=== PATIENT | male | born 2000 | race Two or more races ===

== ENCOUNTER 2022-08-30 07:18 | Day surgery (SDC) | payer OTHER ==
[2022-08-30] VITALS (8 sets, daily range): BP systolic 120–134; BP diastolic 58–81
[~2022-08-30] VITALS: Ht 175.3 cm; Wt 88.9 kg
[~2022-08-30 07:18] MED LIST: NO HOME MEDS; famotidine 20mg tablet PO ONE; ringers solution, lacted 1,000 ML IV SCH
[2022-08-30] MEDS ORDERED: CEFAZOLIN 2 GM injection IM ONE (09:15)
[2022-08-30 09:28] LABS: BASOPHILS % (AUTO) 0.9 % (0-1); EOSINOPHILS % (AUTO) 0.7 % (0-6); HEMATOCRIT 47.1 % (42.0-52.0); HEMOGLOBIN 15.6 g/dl (14.0-17.9); LYMPHOCYTES # (AUTO) 1.8 X10'3 (1.1-4.8); LYMPHOCYTES % (AUTO) 38.1 % (21-51); MEAN CORPUSCULAR HEMOGLOBIN 28.9 PG (27.0-31.0); MEAN CORPUSCULAR HGB CONC 33.1 g/dL (33.0-36.5); MEAN CORPUSCULAR VOLUME 87.3 FL (78-98); MEAN PLATELET VOLUME 7.9 FL (7.4-10.4); MONOCYTES # (AUTO) 0.5 X10'3 (0-0.9); MONOCYTES % (AUTO) 9.9 % (2-12); NEUTROPHILS # (AUTO) 2.4 X10'3 (1.8-7.7); NEUTROPHILS % (AUTO) 50.4 % (42-75); PLATELET COUNT 184 X10'3 (140-440); RED CELL DISTRIBUTION WIDTH 13.6 % (11.5-14.5); WHITE BLOOD COUNT 4.9 X10'3 (4.5-11.0)
[2022-08-30] MEDS ORDERED: ondansetron/PF 4mg/2ml inj IV PRN (09:30)
[2022-08-30] MEDS ORDERED: morphine 2 MG/ML inj. syringe IV PRN (09:30)
[2022-08-30] MEDS ORDERED: morphine 4 MG/ML inj SYRINge IV PRN (09:30)
[2022-08-30] MEDS ORDERED: proCHLORperazine 10 MG/2 ml inj IV PRN (09:30)
[2022-08-30] MEDS ORDERED: meperidine/PF 25mg/ml syringe IV PRN ×3 (09:30)
[2022-08-30] MEDS ORDERED: ringers solution, lacted 1,000 ML IV SCH (09:30)
[2022-08-30 09:31] LABS: CLARITY,URINE CLEAR (Clear); COLOR,URINE YELLOW (Yellow); GLUCOSE, URINE NEGATIVE (Neg); KETONES,URINE NEGATIVE (Neg); LEUKOCYTE ESTERASE ,URINE NEGATIVE (Neg); NITRITES, URINE NEGATIVE (Neg); OCCULT BLOOD,URINE TRACE-INTACT (Neg); PROTEIN,URINE NEGATIVE (Neg); UROBILINOGEN,URINE 0.2 E.U/dL (0.2-1.0)
[2022-08-30 09:33] LABS: UA COLLECTION TYPE CLN CATCH MIDSTREAM
[2022-08-30] MEDS ORDERED: cefazolin 2gm/D5W 100mL 100 ML IV ONE (09:33)
[2022-08-30] MEDS ORDERED: BUPIVAcaine/PF 2.5 mg/ml (0.25%) 30ml vial ONE (09:41)
[2022-08-30] MEDS ORDERED: povidone-iodine 10% ointment 1 APPLIC APPLIC TP ONE (09:41)
[2022-08-30 09:44] LABS: BACTERIA,URINE NONE SEEN /HPF (Neg); MUCUS STRANDS NONE SEEN /LPF (Neg); RBC,URINE 0-2 /HPF (0-2); SQUAMOUS EPITHELIAL CELL,UR NONE SEEN /LPF (FEW); WBC,URINE NONE SEEN /HPF (0-4)
[2022-08-30] MEDS ORDERED: cloNIDine hcl/PF 100mcg/ml inj ONE (10:04)
[2022-08-30] MEDS ORDERED: fentaNYL/PF 50MCG/1 ML 2ML syringe ONE (10:08)
[2022-08-30] MEDS ORDERED: MIDAZolam 1 MG/ML 5ML VIAL ONE (10:08)
[2022-08-30] MEDS ORDERED: rocuronium 10mg/ml inj IV ONE (10:15)
[2022-08-30] MEDS ORDERED: sevoflurane 250ml liquid IH ONE (10:15)
[2022-08-30 11:03] LABS: BLOOD UREA NITROGEN 16 MG/DL (7-18); BUN/CREATININE RATIO 22.9 (10.0-20.0); CALCIUM 9.1 MG/DL (8.5-10.1); CHLORIDE 104 MMOL/L (99-107); GLUCOSE 100 MG/DL (70-104); SODIUM 141 MMOL/L (135-145); eGFR > 90 ML/MIN
[2022-08-30 11:25] LABS: ALANINE AMINOTRANSFERASE 12 U/L (12-78); ALBUMIN 4.1 G/DL (3.4-5.0); ALBUMIN/GLOBULIN RATIO 1.2 (1.1-1.5); ALKALINE PHOSPHATASE 77 IU/L (20-180); ANION GAP 7 (8-16); ASPARTATE AMINO TRANSFERASE 12 U/L (10-37); BILIRUBIN,TOTAL 0.8 MG/DL (0.1-1.0); TOTAL PROTEIN 7.4 G/DL (6.4-8.2)
[2022-08-30] MEDS ORDERED: ePHEDrine 50MG/ML INJ. ONE (11:28)
[2022-08-30] MEDS ORDERED: neostigmine methylsulfate 1 MG/ML 10ml vial ONE (11:28)
[2022-08-30] MEDS ORDERED: propofol inj 20 ML IV ONE (11:28)
[2022-08-30] MEDS ORDERED: glycopyrrolate 0.2mg/ml inj ONE (11:28)
[2022-08-30] MEDS ORDERED: dexamethasone sod phosphate 4mg/ml inj. ONE (11:28)
[2022-08-30] MEDS ORDERED: ondansetron/PF 4mg/2ml inj ONE (11:28)
[2022-08-30] MEDS ORDERED: phenylephrine 10mg/ml inj. -priapism dosing ONE (11:28)
[2022-08-30] MEDS ORDERED: ROPIVAcaine 0.5% (5mg/ml) 30ml vial ONE (11:29)
[2022-08-30] MEDS ORDERED: meperidine/PF 25mg/ml syringe ONE (11:35)
--- NOTE | 2022-08-30 11:39 | NUR ---
Received from OR via [facility], accompanied by Anesthesiologist and report given by NORRIS Anesthesiologist. PATIENT WAKING UP, NO S/S OF PAIN, V/S WNL, 20G TO RIGHT FOREARM, LEFT ANKLE MACO WRAP DRESSING C/D/I. ELEVATE AND ICE PACK LLE. Addendum: 08/30/22 at 1152 by Kalin Tidwell RN Amended: Links added.
--- NOTE | 2022-08-30 12:39 | NUR ---
ALL DISCHARGE CRITERIA HAS BEEN MET. VSS, PAIN AT A TOLERABLE LEVEL, ABLE TO SAFELY AMBULATE AND TRANSFER SELF. IV TAKEN OUT WITHOUT ANY COMPLICATIONS. ALL DISCHARGE INSTRUCTIONS COVERED WITH PATIENT AND ALL QUESTIONS ANSWERED. PATIENT TAKEN OUT VIA WHEELCHAIR WITH ALL BELONGINGS TO PERSONAL VEHICLE WHERE FAMILY DROVE PATIENT HOME. Addendum: 08/30/22 at 1243 by Kalin Tidwell RN Amended: Links added.
== END 2022-08-30 12:39 | disposition home or self-care (01) ==
LOC: PAS 07:18
PROVIDERS: ATTEND Podiatrist Foot & Ankle Surgery
DX: S82.62XA Displaced fracture of lateral malleolus of left fibula, initial encounter for closed fracture (principal); G89.18 Other acute postprocedural pain; Z79.82 Long term (current) use of aspirin; Z79.899 Other long term (current) drug therapy; X58.XXXA Exposure to other specified factors, initial encounter; Y93.89 Activity, other specified; Y92.89 Other specified places as the place of occurrence of the external cause; Y99.8 Other external cause status
CPT/HCPCS: 27792; 36415; 64447; 64450; 80053; 81001; 82948; 85025; A6223; C1713; J0735; J1100; J2175; J2250; J2370; J2405; J2704; J2710; J2795; J3010; J3490; J7030; J7120; Z7506; Z7508; Z7512; A4618; A6253; A6449; A7000; J0690